=== PATIENT | female | born 1985 | race Caucasian/White ===

== ENCOUNTER 2019-07-01 03:54 | Inpatient (IN) ==
[2019-07-01] MEDS ORDERED: Metoclopramide 10 MG/2 ML VIAL IVP PRN (04:31)
[2019-07-01] MEDS ORDERED: Famotidine 20 MG/2 ML VIAL IVP PRN (04:31)
[2019-07-01] MEDS ORDERED: Ringers Solution, Lactated 1,000 ML ONE ×4 (05:22→18:13)
[2019-07-01] MEDS: miSOPROStol 25 MCG TABLET VG PRN ×2 (05:26→10:26)
[2019-07-01 05:54] LABS: Basophils % 0.3 %; Eosinophils # 0.1 K/mcL (0.0-0.6); Eosinophils % 0.6 %; Hematocrit 34.1 % (35.3-44.9); Hemoglobin 11.5 g/dL (11.5-15.4); Immature Granulocytes % 0.8 % (0-4); Lymphocytes # 2.7 K/mcL (0.6-4.6); Lymphocytes % 18.3 %; Mean Corpuscular HGB Conc 33.7 g/dL (31.6-35.5); Mean Corpuscular Hemoglobin 28.8 pg (28.0-33.3); Mean Corpuscular Volume 85.3 fL (83.0-100.0); Mean Platelet Volume 11.7 fL (9.4-12.4); Monocytes % 7.2 %; Neutrophils # 10.6 K/mcL (1.6-8.9); Platelet Count 297 K/mcL (140-400); Red Cell Distribution Width 14.4 % (11.5-14.5); Segmented Neutrophils % 72.8 %; White Blood Count 14.5 K/mcL (4.3-11.1)
[2019-07-01 05:57] LABS: Amphetamine Screen,Urine Negative ng/mL (Cutoff=1000); Barbiturate Screen,Urine Negative ng/mL (Cutoff=200)
[2019-07-01 05:58] LABS: Benzodiazepines Screen,Urine Negative ng/mL (Cutoff=300); Cannabinoid Screen,Urine Negative ng/mL (Cutoff = 50); Cocaine Screen,Urine Negative ng/mL (Cutoff= 300); Opiate Screen,Urine Negative ng/mL (Cutoff=300); Phencyclidine Screen,Urine Negative ng/mL (Cutoff=25)
[2019-07-01] MEDS ORDERED: Bupivacaine-MPF 0.25% 10 ML VIAL EP ONE (11:14)
[2019-07-01] MEDS ORDERED: *HR* FentaNYL (PF) 100 MCG/2 ML VIAL EP ONE (11:14)
[2019-07-01] MEDS ORDERED: Bupivacaine-MPF 0.25% 10 ML VIAL ONE (11:16)
[2019-07-01] MEDS ORDERED: *HR* FentaNYL (PF) 100 MCG/2 ML VIAL ONE (11:16)
[2019-07-01] MEDS: *HR* Nalbuphine 10 MG/ML AMPUL IVP PRN ×2 (11:26→14:11)
[2019-07-01] MEDS ORDERED: Oxytocin 20 units/ LR 1000 mL 20 UNIT/1,000 ML BAG IVC SCH (14:45)
[2019-07-01] MEDS: Epidural Premix (fent/bupiv) 110 ML EP SCH (14:56)
[2019-07-01] MEDS ORDERED: EPHEDrine 50 MG/ML VIAL ONE (15:14)
[2019-07-01] MEDS ORDERED: Ondansetron 4 MG/2 ML VIAL IVP ONE (17:17)
[2019-07-01] MEDS ORDERED: Ondansetron 4 MG/2 ML VIAL ONE (21:19)
[2019-07-02] MEDS: Epidural Premix (fent/bupiv) 110 ML EP SCH (01:07)
[2019-07-02] MEDS ORDERED: Ringers Solution, Lactated 1,000 ML ONE ×3 (01:51→19:20)
[2019-07-02] MEDS ORDERED: Ondansetron 4 MG/2 ML VIAL IVP SCH (04:00)
[2019-07-02] MEDS ORDERED: Clindamycin 900 MG/50 ML 900 MG/50 ML IV.SOLN IVPB ONE (05:50)
[2019-07-02] MEDS ORDERED: Lidocaine/EPI 1:200k 2% PF 20 ML VIAL ONE (06:00)
[2019-07-02] MEDS ORDERED: *HR* FentaNYL (PF) 100 MCG/2 ML VIAL ONE (06:00)
[2019-07-02] MEDS ORDERED: *HR* Oxytocin 10 UNIT/ML VIAL IM ONE (06:16)
[2019-07-02] MEDS ORDERED: *HR* Morphine Sulfate/PF 10 MG/10 ML AMPUL ONE (06:45)
[2019-07-02] MEDS ORDERED: Ibuprofen 400 MG TABLET PO PRN ×2 (08:09→09:37)
[2019-07-02] MEDS ORDERED: *HR* HYDROmorphone (PF) 1 MG/ML SYRINGE IVP PRN ×2 (08:09→09:37)
[2019-07-02] MEDS ORDERED: *HR* OxyCODONE/APAP 5/325 TABLET PO PRN ×3 (08:09→09:37)
[2019-07-02] MEDS ORDERED: Morphine Sulfate 2 MG/ML SYRINGE IVP PRN ×2 (08:09→09:37)
[2019-07-02] MEDS ORDERED: Naloxone 0.4 MG/ML INJ IVP PRN ×2 (08:09→09:37)
[2019-07-02] MEDS ORDERED: Sennosides 8.6 MG TABLET PO PRN (09:37)
[2019-07-02] MEDS ORDERED: Metoclopramide 10 MG/2 ML VIAL IVP PRN (09:37)
[2019-07-02] MEDS ORDERED: Ondansetron 4 MG/2 ML VIAL IVP PRN (09:37)
[2019-07-02] MEDS ORDERED: Ibuprofen 600 MG TABLET PO PRN (09:37)
[2019-07-02] MEDS ORDERED: Acetaminophen IV 1,000 MG/100 ML INFUS..BTL IVPB ONE (09:37)
[2019-07-02] MEDS ORDERED: Clindamycin 900 MG/50 ML 900 MG/50 ML IV.SOLN IVPB SCH (09:37)
[2019-07-02] MEDS ORDERED: Simethicone 80 MG TAB.CHEW PO PRN (09:37)
[2019-07-02] MEDS: Acetaminophen IV 1,000 MG/100 ML INFUS..BTL IVPB SCH ×3 (10:41→21:42)
[2019-07-02] MEDS: Prenatal Vit/FA 1 EACH TABLET PO SCH (10:50)
[2019-07-02] MEDS: valACYclovir 500 MG TABLET PO SCH (10:50)
[2019-07-02] MEDS: Oxytocin 20 units/ LR 1000 mL 20 UNIT/1,000 ML BAG IVC SCH (10:54)
[2019-07-02] MEDS: Ibuprofen 600 MG TABLET PO SCH ×2 (13:03→18:18)
[2019-07-02] MEDS: Clindamycin 900 MG/50 ML 900 MG/50 ML IV.SOLN IVPB SCH ×2 (14:39→22:27)
[2019-07-02] MEDS: Ringers Solution, Lactated 1,000 ML IVC SCH (19:30)
[2019-07-03] MEDS: Acetaminophen IV 1,000 MG/100 ML INFUS..BTL IVPB SCH (02:33)
[2019-07-03] MEDS: Ringers Solution, Lactated 1,000 ML IVC SCH ×2 (03:50→10:45)
[2019-07-03] MEDS: Ibuprofen 600 MG TABLET PO SCH ×4 (05:06→18:20)
[2019-07-03 08:08] LABS: Basophils % 0.3 %; Eosinophils # 0.1 K/mcL (0.0-0.6); Eosinophils % 0.7 %; Hematocrit 24.9 % (35.3-44.9); Immature Granulocytes % 1.1 % (0-4); Lymphocytes # 1.8 K/mcL (0.6-4.6); Lymphocytes % 16.8 %; Mean Corpuscular HGB Conc 33.3 g/dL (31.6-35.5); Mean Corpuscular Hemoglobin 29.3 pg (28.0-33.3); Mean Platelet Volume 11.2 fL (9.4-12.4); Monocytes # 0.8 K/mcL (0.0-1.3); Neutrophils # 8.1 K/mcL (1.6-8.9); Platelet Count 235 K/mcL (140-400); Red Blood Count 2.83 M/mcL (3.82-4.97); Red Cell Distribution Width 14.7 % (11.5-14.5); Segmented Neutrophils % 74.1 %; White Blood Count 10.9 K/mcL (4.3-11.1)
[2019-07-03 08:09] LABS: Hemoglobin 8.3 g/dL (11.5-15.4)
[2019-07-03] MEDS: Prenatal Vit/FA 1 EACH TABLET PO SCH (08:23)
[2019-07-03] MEDS: valACYclovir 500 MG TABLET PO SCH (08:31)
[2019-07-03] MEDS ORDERED: Ibuprofen 600 MG TABLET PO PRN (09:37)
[2019-07-03] MEDS: *HR* OxyCODONE Immed Rel 5 MG TABLET PO PRN ×3 (10:25→20:24)
[2019-07-03] MEDS: Ondansetron ODT 4 MG TAB.RAPDIS SL PRN ×2 (10:25→16:20)
[2019-07-03] MEDS: Clindamycin 900 MG/50 ML 900 MG/50 ML IV.SOLN IVPB SCH ×2 (10:42→15:41)
[2019-07-03] MEDS: Oxytocin 20 units/ LR 1000 mL 20 UNIT/1,000 ML BAG IVC SCH (10:42)
[2019-07-04] MEDS: Ibuprofen 600 MG TABLET PO SCH ×3 (00:29→12:53)
[2019-07-04] MEDS: *HR* OxyCODONE Immed Rel 5 MG TABLET PO PRN ×3 (03:06→12:53)
[2019-07-04] MEDS: valACYclovir 500 MG TABLET PO SCH (07:41)
[2019-07-04] MEDS: Prenatal Vit/FA 1 EACH TABLET PO SCH (07:42)
[2019-07-04 09:44] VITALS: BP 117/67
== END 2019-07-04 12:55 | disposition home or self-care (01) | DRG 787 ==
LOC: 1NENULAB 03:54 → 1NENUOBS 07-02 09:29
PROVIDERS: ADMIT Obstetrics & Gynecology; ATTEND Obstetrics & Gynecology